=== PATIENT | female | born 1970 ===

== ENCOUNTER 2020-10-27 08:34 | Emergency (ER) | payer MEDICAID, OTHER ==
[~2020-10-27] VITALS: Ht 162.6 cm; Wt 56.1 kg
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
--- NOTE | 2020-10-27 08:46 | NUR ---
lab at bedside to draw
[2020-10-27 08:56] LABS: PH, VENOUS 7.312 pH (7.320-7.420)
[2020-10-27 08:57] LABS: FIO2 ROOM AIR %
[2020-10-27 08:59] LABS: BASOPHILS % (AUTO) 1 % (0-1); EOSINOPHILS % (AUTO) 0 % (1-7); LYMPHOCYTES % (AUTO) 10 % (22-44); MEAN CORPUSCULAR HEMOGLOBIN 30.2 pg (27.0-34.8); MEAN CORPUSCULAR HGB CONC 33.9 g/dL (32.4-35.8); MEAN PLATELET VOLUME 7.8 fL (7.4-10.4); MONOCYTES % (AUTO) 4 % (2-9); NEUTROPHILS % (AUTO) 85 % (42-75); PLATELET COUNT 227 x10^3/uL (130-400); RED BLOOD COUNT 4.65 x10^6/uL (3.82-5.3); RED CELL DISTRIBUTION WIDTH 13.3 % (9.6-15.2)
[2020-10-27] MEDS ORDERED: SODIUM CHLORIDE 0.9% 1,000ML IVBOLUS ONE (09:00)
[2020-10-27] MEDS ORDERED: PLEASE ENTER ALLERGIES MC SCH (09:00)
[2020-10-27] MEDS ORDERED: PLEASE ENTER HEIGHT AND WEIGHT MC SCH (09:00)
[2020-10-27 09:03] LABS: MD NO
[2020-10-27 09:09] LABS: ALBUMIN 3.9 g/dL (3.4-5.0); ANION GAP 9 mmol/L (5-15); CALCIUM 9.6 mg/dL (8.5-10.1); CHLORIDE 97 mmol/L (98-107); CREATININE 1.56 mg/dL (0.55-1.02)
[2020-10-27 09:15] LABS: MICROSCOPIC AUTO
--- NOTE | 2020-10-27 09:40 | NUR ---
pt sitting up on gurney in no apparent distress. no new c/o. [employer] still at bedside. pt updated on POC
[2020-10-27 10:04] LABS: ACETONE, SERUM Negative (Negative)
--- NOTE | 2020-10-27 10:48 | NUR ---
Report received, care assumed, and pt introductions made with off-going RN and this RN. [employer] officer at bedside, pt A/Ox4 in NAD (no acute distress). All labs and radiograph results reviewed at this time.
--- NOTE | 2020-10-27 10:50 | NUR ---
no changes. pt sitting up on gurney in no apparent distress. [employer] at bedside report to Marian GARZON
--- NOTE | 2020-10-27 11:16 | NUR ---
MD at bedside for repeat exam. FSBS reassessed to be 269. Insulin orders present. [employer] officer aware.
[2020-10-27] MEDS ORDERED: INSULIN REGULAR 100 UNITS/ML, 3ML VIAL SQ-INSULIN ONE ×2 (11:30→12:30)
[2020-10-27] MEDS ORDERED: INSULIN SINGLE DOSE, ER ONE (11:57)
--- NOTE | 2020-10-27 12:02 | NUR ---
Insulin 4units SQ given per MD verbal order after notification of FSBS 269. Unable to scan due to prior order for 10 units still present. MD notified of needed change in orders.
[2020-10-27 12:32] VITALS: BP 167/90
--- NOTE | 2020-10-27 12:32 | NUR ---
Repeat FSBS 229 after SQ insulin given. D/C paperwork at bedside to discuss with pt and officer. Pt assisted to restroom with officer and skilled nursing facility counselor to urinate prior to leaving dept.
== END 2020-10-27 12:38 | disposition home or self-care (01) ==
LOC: ED 12:30
DX: E11.65 Type 2 diabetes mellitus with hyperglycemia (principal); G89.29 Other chronic pain; M54.5 Low back pain; F17.200 Nicotine dependence, unspecified, uncomplicated
CPT/HCPCS: 36415; 80048; 81001; 82010; 82040; 82803; 82962; 85025; 87086; 96360; 96361; 99283; J1815; J7030

== ENCOUNTER 2021-03-09 22:02 | Emergency (ER) | payer MEDICAID, OTHER ==
[~2021-03-09] VITALS: Ht 154.9 cm; Wt 50.0 kg
--- NOTE | 2021-03-09 22:46 | NUR ---
THIS RN WALKED COVID SWAB TO LAB AT THIS TIME.
[2021-03-09 22:48] VITALS: BP 120/71
--- NOTE | 2021-03-09 23:19 | NUR ---
PATIENT AMBULATORY TO RESTROOM AT THIS TIME.
--- NOTE | 2021-03-09 23:45 | NUR ---
Patient given discharge instructions and they have confirmed that they understand the instructions. Patient ambulatory with steady gait. NAD, all questions answered appropriately, denies additional needs at this time. No personal belongings left in room after discharge.
== END 2021-03-09 23:54 | disposition home or self-care (01) ==
LOC: ED 23:00
DX: U07.1 COVID-19 (principal); B34.9 Viral infection, unspecified; R06.02 Shortness of breath; E11.9 Type 2 diabetes mellitus without complications; F17.200 Nicotine dependence, unspecified, uncomplicated
CPT/HCPCS: 71045; 99284; U0003; U0005